=== PATIENT | male | born 1985 | race Caucasian/White ===

== ENCOUNTER 2020-07-18 15:43 | Emergency (ER) | payer SELFPAY ==
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
[2020-07-18 16:14] VITALS: BP 110/60; TEMP 99.2; O2SAT 96
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
== END 2020-07-18 16:07 | disposition left against medical advice (07) ==
LOC: ER 15:43
DX: R55 Syncope and collapse (principal)
CPT/HCPCS: 99284